=== PATIENT | male | born 1975 | race Caucasian/White ===

== ENCOUNTER 2018-08-02 20:56 | Emergency (ER) | payer OTHER ==
[~2018-08-02] VITALS: Ht 190.5 cm; Wt 90.9 kg
[2018-08-02 21:04] VITALS: TEMP 98
[2018-08-02 21:28] LABS: BASO % 0.6 % (0.0-2.0); EOS # 0.1 (0.0-0.7); EOS % 2.4 % (0-4.0); GRAN # 3.2 (1.4-6.5); GRAN % 59.9 % (42.2-75.2); HEMATOCRIT 44.7 % (42.0-52.0); HEMOGLOBIN 15.7 g/dl (13.5-18.0); LYMPH # 1.6 (1.2-3.4); MEAN CELL VOLUME 95 fl (80.0-100.0); MEAN CORPUSCULAR HEMOGLOBIN 33 pg (27.0-31.0); MEAN CORPUSCULAR HGB CONC 35 g/dl (33.0-37.0); MEAN PLATELET VOLUME 10.8 fl (7.4-10.4); MONO # 0.4 (0.1-0.6); MONO % 7.9 % (1.7-9.3); PLATELET COUNT 130 K/mm3 (130-400); RED BLOOD COUNT 4.73 M/mm3 (4.20-5.60); REDCELL DISTRIBUTION WIDTH-CV 11.8 % (11.5-14.5)
[2018-08-02 21:33] LABS: INR 0.9 (0.8-3.0); PROTHROMBIN TIME 10.1 SECONDS (9.7-12.8)
[2018-08-02 21:38] LABS: ALANINE AMINOTRANSFERASE 25 U/L (21-72); ALBUMIN 4.2 gm/dL (3.5-5.0); ALKALINE PHOSPHATASE 104 U/L (50-136); ANION GAP 12 mmol/L (7-16); AST,SGOT 26 U/L (15-37); BILIRUBIN,TOTAL 0.2 mg/dL (0.0-1.0); BLOOD UREA NITROGEN 15 mg/dL (9-20); CALCIUM 9.1 mg/dL (8.4-10.2); CARBON DIOXIDE 27 mmol/L (22-30); CHLORIDE 101 mmol/L (98-107); GLUCOSE 156 mg/dL (74-106); POTASSIUM 3.6 mmol/L (3.4-5.0); SODIUM 139 mmol/L (137-145); TOTAL PROTEIN 7.3 gm/dL (6.4-8.2)
[2018-08-02 21:51] LABS: TROPONIN-I < 0.012 ng/mL (0.000-0.035)
[2018-08-03] MEDS ORDERED: FLEXERIL 1010 MG/TAB PO (01:24)
[2018-08-03 01:46] VITALS: BP 130/87; PULSE 76
== END 2018-08-03 01:47 | disposition home or self-care (01) ==
LOC: COL.ER 20:56
PROVIDERS: Emergency Medicine
DX: R07.89 Other chest pain (principal); F17.210 Nicotine dependence, cigarettes, uncomplicated; Z90.89 Acquired absence of other organs

== ENCOUNTER 2020-04-01 20:29 | Emergency (ER) | payer OTHER ==
[~2020-04-01] VITALS: Ht 190.5 cm; Wt 104.5 kg
[~2020-04-01 20:29] MED LIST: FLEXERIL 1010 MG/TAB PO
[2020-04-01 20:32] VITALS: TEMP 98.7
[2020-04-01] MEDS ORDERED: CEPHALEXIN500 M1 PO (21:08)
[2020-04-01 21:20] VITALS: BP 150/98; PULSE 86
== END 2020-04-01 21:28 | disposition home or self-care (01) ==
LOC: COL.ER 20:29
DX: S61.216A Laceration without foreign body of right little finger without damage to nail, initial encounter (principal); W26.8XXA Contact with other sharp object(s), not elsewhere classified, initial encounter; Y92.009 Unspecified place in unspecified non-institutional (private) residence as the place of occurrence of the external cause

== ENCOUNTER 2022-09-13 01:05 | Emergency (ER) | payer OTHER ==
[~2022-09-13] VITALS: Ht 190.5 cm; Wt 125.0 kg
[~2022-09-13 01:05] MED LIST changes: +CEPHALEXIN500 M1 PO
[2022-09-13 01:14] VITALS: TEMP 98.7
[2022-09-13 01:27] LABS: BASO % 0.6 % (0.0-2.0); EOS # 0.2 K/mm3 (0.0-0.7); EOS % 2.1 % (0.0-4.0); GRAN # 4.3 K/mm3 (1.4-6.5); GRAN % 60.3 % (42.2-75.2); HEMATOCRIT 45.2 % (42.0-52.0); LYMPH % 28.1 % (20.0-51.0); MEAN CELL VOLUME 93 fl (80.0-100.0); MEAN CORPUSCULAR HEMOGLOBIN 33 pg (27-31); MEAN CORPUSCULAR HGB CONC 35 g/dl (33.0-37.0); MEAN PLATELET VOLUME 10.5 fl (7.4-10.4); MONO # 0.6 K/mm3 (0.1-0.6); MONO % 8.6 % (1.7-9.3); PLATELET COUNT 167 K/mm3 (130-400); RED BLOOD COUNT 4.86 M/mm3 (4.20-5.60); REDCELL DISTRIBUTION WIDTH-CV 11.8 % (11.5-14.5)
[2022-09-13 01:44] LABS: ALANINE AMINOTRANSFERASE 41 U/L (0-55); ALBUMIN 4.1 gm/dL (3.5-5.0); ALKALINE PHOSPHATASE 100 U/L (40-150); ANION GAP 11 mmol/L (7-16); AST,SGOT 25 U/L (5-34); BILIRUBIN,TOTAL 0.3 mg/dL (0.2-1.2); BLOOD UREA NITROGEN 16 mg/dL (9-21); CALCIUM 9.1 mg/dL (8.4-10.2); CARBON DIOXIDE 24 mmol/L (22-29); CHLORIDE 105 mmol/L (98-107); CREATININE, serum 1.17 mg/dL (0.72-1.25); GLUCOSE 107 mg/dL (70-99); POTASSIUM 4.1 mmol/L (3.5-4.5); SODIUM 140 mmol/L (136-145); TOTAL PROTEIN 7.2 gm/dL (6.2-8.1)
[2022-09-13 01:51] LABS: TROPONIN-I < 0.010 ng/mL (0.00-0.033)
[2022-09-13] MEDS ORDERED: BENTYL 20MG20 MG/TAB PO (02:17)
[2022-09-13 02:34] VITALS: BP 132/81; PULSE 80
== END 2022-09-13 02:36 | disposition home or self-care (01) ==
LOC: COL.ER 01:05
PROVIDERS: Physician Assistant
DX: R10.32 Left lower quadrant pain (principal); R14.0 Abdominal distension (gaseous); R00.2 Palpitations; F17.210 Nicotine dependence, cigarettes, uncomplicated; Z90.49 Acquired absence of other specified parts of digestive tract; Z28.310 Unvaccinated for COVID-19
CPT/HCPCS: J0500